=== PATIENT | female | born 1975 | race Caucasian/White ===

== ENCOUNTER → 2016-10-29 | Outpatient (CLI) | payer BC ==
[2016-10-29 12:34] LABS: HEMOGLOBIN 13.5 g/dL (12.2-16.2); LYMPH # 3.1 K/mm3 (0.7-4.5)
[2016-10-29 14:06] LABS: BUN 12 mg/dL (7-18); FREE THYROXIN INDEX 5.8 ug/dl (5.93-13.13)
[2016-10-29 14:13] LABS: GFR (ESTIMATED) 92 ML/MIN (59-)
== END ==
LOC: LAB 12:17
PROVIDERS: Internal Medicine Adolescent Medicine
DX: E03.9 Hypothyroidism, unspecified (principal); E11.9 Type 2 diabetes mellitus without complications; M79.1 Myalgia

== ENCOUNTER 2017-06-12 17:14 | Observation (INO) | payer SELFPAY ==
[~2017-06-12] VITALS: Ht 160 cm; Wt 117.1 kg
[2017-06-12 17:35] VITALS: BP 152/83
[2017-06-12 17:39] VITALS: BP 152/83
[2017-06-12] MEDS ORDERED: XANAX 1MG TABLET1 MG PO (18:09)
[2017-06-12] MEDS ORDERED: ARMOUR THYROID15 M1 PO (18:12)
--- NOTE | 2017-06-12 18:12 | HISTORY AND PHYSICAL REPORT ---
Demographics: Admit date: 06/12/17 Chief complaint: LEFT lower quadrant abdominal pain PRIMARY DIAGNOSIS: KIDNEY STONES,FAILED OUTPATIENT THERAPY Allergies: Coded Allergies: Sulfa (Sulfonamide Antibiotics) (06/12/17) diphenhydramine (From BENADRYL) (06/12/17) History of present illness: History of present illness: 41-year-old with 2-3 week history of dysuria, with increasing pain with urination, has been treated with Macrobid and Cipro as an outpatient. Came to the office today, significant LEFT flank pain, significant pain in the LEFT lower quadrant, significant LEFT CVA tenderness. Urine with hematuria on outpatient dipstick testing. Admitted to hospital for pain control, CT scanning and IV fluids as well as urology consultation if indicated. Past medical history: Family HX Diabetes No CAD Yes Hypertension Yes Hyperlipidemia Yes Cancer Yes TB No Immunization HX DT/Tetanus 03/25 Flu Refused Pneumonia Refuses TB Test in last year No General Angina: No [place]: No Hypertension? No Hyperlipidemia? No CHF? No COPD? No Asthma? No Hernia? No CVA? No Seizures? No Diabetes? No UTI? Yes Stones? Yes GB Disease: No Nephritic Syndrome? No Asplenia? No Hepatitis? No Sickle Cell Disease? No Cataracts? No Glaucoma? No MRSA? No HIV? No TB? No Cancer? No More? No Past Surgical HX Previous Surgery?Y CSECTIONX2 CERVICAL SURGERY WISDOM Current home meds: Reported Medications Alprazolam (Xanax 1MG) 1 MG PO TIDP PRN ANXIETY Social Hx: Smoking HX Are you/the child exposed to second-hand smoke: No Alcohol Alcohol: No Hx of Drug Use Drug Use? No Patien't marital status is Patient's support system is excellent Review of systems: Constitutional malaise, weakness. No: fever. Respiratory No: no symptoms reported. Cardiovascular No no symptoms reported Gastrointestinal/Abdominal nausea, poor appetite, poor fluid intake, No rectal bleeding, No vomiting Genitourinary see HPI. Musculoskeletal No: no symptoms reported. Neurological No: see HPI. Exam: Lab data for last 24 hours: Microbiology 06/12 UNK BLOOD: Anaerobic Blood Culture - ORD 06/12 UNK BLOOD: Aerobic Blood Culture - ORD 06/12 UNK BLOOD: Anaerobic Blood Culture - ORD 06/12 UNK BLOOD: Aerobic Blood Culture - ORD Admission vital signs: 1ST Vital Signs Result Date Time B/P 152/83 06/12 1735 Temp 97.9 06/12 1735 Pulse 96 06/12 173 Resp 18 06/12 1735 Pulse Ox 96 06/12 1739 O2 Delivery ROOM AIR 06/12 1739 Exam General appearance: normal appearance, alert, awake Eyes: normal exam, anicteric ENT: normal exam, mucous membranes moist Neck: normal inspection, non-tender, no carotid bruit, no JVD Cardiovascular: normal exam Respiratory: normal exam, clear to auscultation ABD: soft, LEFT flank and CVA tenderness with no rebound or guarding Genitourinary: normal voiding & quantity Extremities: normal exam Musculoskeletal: normal exam Skin: normal exam, intact, normal color Neuro: normal exam, alert, no deficit Plan: Problem List 1. Hematuria 2. Left flank pain Plan: Possible nephrolithiasis. Admit to hospital for CT scanning, IV fluids, IV pain control, IV antibiotics and urology consultation if indicated. at 1812
[2017-06-12] MEDS ORDERED: BUPROPION HYDR150 M1 PO (18:13)
[2017-06-12] MEDS ORDERED: BUPROPION XL300 MG PO (18:13)
[2017-06-12] MEDS ORDERED: SERTRALINE 100100 MG PO (18:13)
[2017-06-12] MEDS ORDERED: LAMICTAL25 MG PO (18:15)
[2017-06-12] MEDS ORDERED: PREDNISONE 5MG.5 MG PO (18:16)
[2017-06-12] MEDS ORDERED: VITAMIN D31000 IU PO (18:17)
[2017-06-12] MEDS ORDERED: BIOTIN5000 MCG PO (18:17)
[2017-06-12] MEDS ORDERED: CAMRESE1 TAB PO (18:18)
[2017-06-12 18:23] LABS: HEMOGLOBIN 12.7 g/dL (12.2-16.2); LYMPH # 2.2 K/mm3 (0.7-4.5); LYMPH % 16.4 % (10-50.0)
[2017-06-12 19:46] LABS: URINE BILIRUBIN - DIPSTICK NEGATIVE (NEG); URINE BLOOD TRACE-LYSED (NEG)
[2017-06-12 20:00] VITALS: BP 149/80
--- NOTE | 2017-06-12 20:28 | RADIOLOGY REPORT PS360 ---
CT ABD PELVIS W/O CONTRAST HISTORY: QUESTION KIDNEY STONEleft flank pain UTIPatient Age: 41 years: Female Ordering Physician: Jeovanny Quiroga MD TECHNIQUE: Helical CT scanning abdomen and pelvis with no oral nor IV contrast. Sagittal and coronal reconstructions on CT workstation.e COMPARISON :No previous studies FINDINGS Obstructive uropathy on left. Left hydronephrosis mild swelling left kidney reflecting the obstruction with some mild stranding about the left kidney. Cannot exclude associated pyelonephritis. Mild dilatation of entire left ureter down to the left UVJ where we encounter a small 3.5 mm x 3 mm calculus projected over the posterior bladder & on the verge final passage through the UVJ and trigone into the bladder.. If it is not passed already Right kidney and collecting system appear normal right ureter unremarkable. Anteverted uterus. Normal size. No adnexal masses. No fluid abdomen or pelvis. GI tract. No bowel dilatation or obstruction. Moderate distended stomach likely reflects recent meal. Small bowel appears normal. Appendix normal. Moderate stool throughout colon. Gallbladder unremarkable. Spleen unremarkable. Scattered small nodes in the mesentery unimpressive but may reflect some mild reactive nodes. Appendix normal Generous size patient --------- Lung bases Lungs clear heart normal size. Benign Calcified granulomas towards lower lobes bilaterally. Abdomen and pelvis. Lack of oral and IV contrast decreases sensitivity Liver, spleen, pancreas unremarkable. Adrenals unremarkable. No retroperitoneal or pelvic findings of distant seen. Osseous structures are been no significant findings. Modest fat-containing umbilical hernia Previous scar below umbilicus noted IMPRESSION: Obstructive Uropathy on the Left . This due to a small 3.5X 3 mm stone at very distal lips of left UVJ--on the verge of passing into the bladder . Mild hydronephrosis. Mild dilatation entire left ureter results . Mild edema left kidney with mild stranding about left kidney mainly reflecting the obstructive uropathy, although cannot exclude associated pyelonephritis . No additional calculi in either kidney.
--- NOTE | 2017-06-12 20:42 | RADIOLOGY REPORT PS360 ---
CHEST(2 VIEWS-NOT PORTABLE) Ordering physician: Jeovanny Quiroga MD Age: 41 years Female INDICATION: chest symptomsadmit. Flank pain. Pelvic pain. Elevated white count. PROCEDURE: CHEST(2 VIEWS-NOT PORTABLE) FINDINGS: Previous chest film available from September 2014 Lungs well expanded. No focal pneumonia. . No acute findings. No significant change . Prominent fairly extensive calcified nodes right hilum more so than left Small Calcified granulomas midlung wolfe bilaterally. No pneumothorax. No pleural effusion. Heart upper normal size. Normal pulmonary vascularity. . Superior mediastinum unremarkable. Chest wall unremarkable. T-spine intact. IMPRESSION -----. Nothing definite acute.. Stable chest Old granulomatous disease. Prominent calcified nodes right hilum more than left
[2017-06-12 21:00] VITALS: BP 149/80
[2017-06-13] VITALS (14 sets, daily range): BP systolic 113–145; BP diastolic 53–86
[2017-06-13 07:02] LABS: HEMOGLOBIN 12.2 g/dL (12.2-16.2); LYMPH # 3.3 K/mm3 (0.7-4.5); LYMPH % 26.3 % (10-50.0)
--- NOTE | 2017-06-13 07:15 | PHARMACY CLINIC NOTE ---
Patient Demographics Patient Demographics Admission date: 06/12/17 Date: 06/13/17 Time: 0714 Allergies Coded Allergies: Sulfa (Sulfonamide Antibiotics) (06/12/17) diphenhydramine (From BENADRYL) (06/12/17) HEIGHT- FT: 5 IN: 3.00 K.113 VTE General Information Labs: Laboratory Tests 06/13 06/12 0600 1812 Hematology Hgb (12.2 - 16.2 g/dL) 12.2 12.7 Hct (37.0 - 47.0 %) 38.9 40.9 Plt Count (142 - 424 K/mm3) 279 263 Disclaimer The following section includes nursing documentation that has been pulled in for pharmacy review. Patient's VTE score: 1 Patient's VTE Risk: VERY LOW RISK Clinical trial participant? No VTE prophylaxis [id number] [id number] VTE prophylaxis ordered? Yes Type of prophylaxis/treatment: KYLAH at 0714
[2017-06-13] MEDS ORDERED: WELLBUTRIN XL150 MG PO (07:27)
--- NOTE | 2017-06-13 09:02 | ACUTE CARE PROGRESS NOTE (QUA) ---
Progress Notes Subjective Date 06/13/17 Time 0725 Note Patient is resting comfortably in bed. Pain is well controlled on Dilaudid. She denies any discomfort at this time. She is NPO for stone extraction later today. Alert and oriented 3. Rate and rhythm regular. No lower extremity edema. Pulses 2+ bilaterally. Lung sounds clear and equal throughout. Abdomen soft and nontender, normoactive bowel sounds Patient/family reports: feeling better Nursing reports: no complaints Objective Findings Last VS-Temp:97.5 B/P:138/84 Pulse:94 Resp:18 SaO2:97 ROOM AIR Last weight lbs:258 oz:3 K.113 Method:Bed Scales Reviewed: medications, vital signs, lab results Assessment/Plan Problem List 1. Hematuria 2. Left flank pain Patient condition Stable Plan: continue current care This inpt stay is expected to cross 2 MNs from start of care No Comments: Kidney Stone extraction later today. at 0901
--- NOTE | 2017-06-13 15:22 | Anesthesia Record ---
Anesthesia Record Part II Discharge time: 1545 Destination: Second Floor PACU nurse assessment review? Yes Patient is: Stable Anesthesia complications? No at 1528
--- NOTE | 2017-06-13 15:22 | Anesthesia Record ---
Anesthesia Record Part I Total IV fluids: 600 EBL (ml): 0 Urine Output: 0 B/P: 139/72 % SaO2: 94 Pulse: 89 Resps: 16 Temp: 97.3 Patient is: Awake, Stable Stable to PACU at: 1515 at 1521
--- NOTE | 2017-06-13 15:26 | CONSULT NOTE-UROLOGY ---
Urology Initial Visit Date of Visit: 06/13/17 HPI/Chief Complaint: Referring provider: 41/F Presenting problem: Length of time pt has had problem: Person attending patient for this visit: Patient is a 41-year-old white female seen as an inpatient today at the request of Dr. Lowe. She was admitted yesterday with LEFT flank pain and CT scan showed a 3 mm distal LEFT ureteral stone with hydroureteronephrosis. Patient has continued to have some discomfort although improved with IV pain medications. She gives a three-week history of some lower urinary tract symptoms and has been treated with several rounds of antibiotics but the symptoms probably more related to the stone and a UTI. Problem List: 1. Ureteral stone Past Medical History Arthritis? Diabetes? N Hyperlipedemia? N Hypertension? N Heart Problems? ND? N SOA? Asthma? N Lung Disease? COPD? N TB? N Anemia? N Bleeding Disorder? Cancer? N Radiation Tx? Hoarsness? Thyroid Problems? Ulcers? N Kidney Disease? Liver Disease? Glaucoma? Seizures? N CVA? N Immune Disease? HIV? N Trouble w/anesthesia? Abn PSA? Prostate Biopsy? Sexual Dysfunction? Abn Periods? Female Hormone Problems? Uterus/Ovary Problems? ? N : Para: Control? Y Type of BC: Surgical & Social History: Previous Surgery?Y CSECTIONX2 CERVICAL SURGERY WISDOM Tobacco Use: Type: Packs/day: If No, have you ever used and quit how long ago? Alcohol Use: Marital Status: Occupation: Family History: Anemia? Arthritis? Asthma? TB?N Cancer?Y Bleeding Troubles? Hyperlipidemia?Y Diabetes?N COPD? Glaucoma? ND? Heart Problems? HIV? Hypertension?Y Hoarsness? Immune Disease? Kidney Disease? Liver Disease? Lung Disease? Radiation Tx? Seizures? Shortness of Breath? Ulcers? CVA? Thyroid Problems? Trouble w/Anes? Any men in family ever diagnosed with prostate cancer? Relationship of this person: Current Home Medications Reported Medications Thyroid,Pork (Secretary Thyroid) 15 MG PO DAILY BUPROPION HCL (Wellbutrin XL 150MG) 150 MG PO DAILY Alprazolam (Xanax 1MG) 1 MG PO TIDP PRN ANXIETY Bupropion Hcl (Bupropion XL 300MG) 300 MG PO DAILY Sertraline Hydrochloride (Sertraline 100MG) 100 MG PO DAILY Lamotrigine (Lamictal) 50 MG PO DAILY Prednisone (Prednisone 5MG) 9 MG PO DAILY Biotin 5,000 MCG PO DAILY CHOLECALCIFEROL (VITAMIN D3) (Vitamin D) 1,000 IUNITS PO DAILY L-NORGEST/E.ESTRADION-E.ESTRAD (Camrese 0.15-0.03-0.01 MG Tab) 1 TAB PO DAILY Allergies: Coded Allergies: Sulfa (Sulfonamide Antibiotics) (06/12/17) diphenhydramine (From BENADRYL) (06/12/17) Review of Systems: All Other Systems Reviewed/Neg for visit Constitutional: Positive for: fatigue. GI: Positive for: nausea. Musculoskeletal: Positive for: lumbar pain. Vital Signs/Wt/Labs Weight -LB:258 OZ:3 K.113 Method:Bed Scales Height -FT:5 IN:3 CM:160.02 BMI:45.7 Vital Signs Date Time Temp Pulse Resp B/P Pulse O2 O2 Flow FiO2 Ox Delivery Rate 06/13 1521 97.3 89 16 139/72 94 06/13 0933 97.5 94 18 138/84 97 06/13 0929 18 06/13 0730 97.5 94 18 138/84 97 ROOM AIR 06/13 0526 18 06/13 0405 97.9 88 18 144/86 98 ROOM AIR 06/12 2205 16 06/12 2100 98.1 89 16 149/80 98 06/12 2000 98.1 89 16 149/80 98 ROOM AIR 06/12 1804 96 06/12 1804 96 ROOM AIR 06/12 1744 18 06/12 1739 97.9 96 20 152/83 96 ROOM AIR 06/12 1735 97.9 96 18 152/83 Color: Appearance Glucose: Ketone: Bilirubin: Sp.[place]: pH: Protein: Urobilinogen: Blood: Nitrite: Leukocytes: Urine collection method? Residual (ml): Laboratory Tests 06/13/17 0600: Sodium 142, Potassium 3.7, Chloride 107, Carbon Dioxide 29, BUN 14, Creatinine 0.9, Estimated Creat Clear 151, Estimated GFR (MDRD) 69, Glucose 94, Calcium 8.4 L, WBC 12.3 H, RBC 4.15 L, Hgb 12.2, Hct 38.9, MCV 93.7, RDW 13.1, Plt Count 279, MPV 8.1, Gran % 65.2, Gran # 8.0 H, Lymphocytes % 26.3, Monocytes % 5.0, Eosinophils % 3.0, Basophils % 0.4, Lymphocytes # 3.3, Monocytes # 0.6, Eosinophils # 0.4, Basophils # 0.1, PUBS MCHC 31.3 L, MCH 29.4 06/12/171921: Urine Color ORANGE, Urine Appearance CLEAR, Urine pH 5.5, Ur Specific [place] >= 1.030, Urine Protein NEGATIVE, Urine Ketones NEGATIVE, Urine Blood TRACE-LYSED, Urine Nitrate POSITIVE H, Urine Bilirubin NEGATIVE, Urine Urobilinogen 1.0, Ur Leukocyte Esterase NEGATIVE, Urine WBC 3-5, Ur Squamous Epith Cells 5-10, Urine Bacteria OCC, Urine Glucose NEGATIVE 06/12/171811: Sodium 139, Potassium 4.1, Chloride 105, Carbon Dioxide 27, BUN 20 H, Creatinine 1.2 H, Estimated Creat Clear 113, Estimated GFR (MDRD) 49 L, Glucose 112 H, Calcium 9.0, Total Bilirubin 0.3, AST 9 L, ALT 16, Alkaline Phosphatase 121 H, Total Protein 7.0, Albumin 3.2 L, Globulin 3.8 H, Albumin/ Globulin Ratio 0.8 L, WBC 13.5 H, RBC 4.30, Hgb 12.7, Hct 40.9, MCV 95.1, RDW 13.3, Plt Count 263, MPV 8.1, Gran % 77.3, Gran # 10.4 H, Lymphocytes % 16.4, Monocytes % 4.9, Eosinophils % 1.1, Basophils % 0.3, Lymphocytes # 2.2, Monocytes # 0.7, Eosinophils # 0.2, Basophils # 0.0, PUBS MCHC 31.2 L, MCH 29.6 Microbiology Date/Time Procedure - Status Source Growth 06/12 1922 Urine Culture - RECD URINE CC 06/12 1812 Anaerobic Blood Culture - RECD BLOOD 06/12 1812 Aerobic Blood Culture - RECD BLOOD 06/12 1757 Anaerobic Blood Culture - RECD BLOOD 06/12 1757 Aerobic Blood Culture - RECD BLOOD Objective: 100 white female in no apparent distress Pupils equal round reactive to light Abdomen soft tender over the LEFT lower quadrant Respiratory effort Alert and oriented 3 Impression/Plan: 41-year-old white female with LEFT renal colic secondary to a 3 mm distal ureteral stone. We discussed treatment options and she wished to proceed with urologic management. She has been nothing by mouth and we'll set up for ureteroscopy and stone extraction today. at 3729
--- NOTE | 2017-06-13 15:30 | Operative Note-Urology ---
Procedure/Operative Record Procedure DATE OF PROCEDURE: 06/13/17 PREOPERATIVE DIAGNOSIS: LEFT distal ureteral stone POSTOPERATIVE DIAGNOSIS: LEFT distal ureteral stone/LEFT distal ureteral stenosis PROCEDURE PERFORMED: LEFT ureteroscopy stone extraction with LEFT stent placement SURGEON: Kar Abrams ANESTHESIA: Gen. DRAINS: LEFT ureteral stent SPECIMENS: LEFT ureteral stone BRIEF HISTORY: 41-year-old white female with LEFT renal colic secondary to a 3 mm distal ureteral stone. OPERATIVE NOTE: Patient taken to the operating room after informed consent was obtained. Placed on the operating table in the supine position. She had been on preoperative antibiotics on the floor. General anesthesia administered and she was placed into the dorsal lithotomy position. Prepped and draped in the standard surgical fashion. The 21 Vietnamese cystoscope passed into the urethra and the bladder examined in a systematic fashion. The only abnormality was that of some edema at the LEFT ureteral orifice and trigone. A 5 Vietnamese ureteral catheter was passed through the scope and into the LEFT ureteral orifice. The guidewire passed through the ureteral catheter into the LEFT renal pelvis without difficulty. The LEFT ureteral catheter and cystoscope then removed. Our semirigid ureteroscope then passed into the bladder and into the LEFT ureter up through some ureteral edema to the level of the stone. A 2.4 Vietnamese nitinol stone basket was passed through the scope and engaged the stone the stone was grasped and removed with minimal difficulty. The scope was repassed and showed no evidence of any ureteral trauma. There was a lot of ureteral edema however below the stone. For this reason we replaced the cystoscope and passed a 4.8 x 24 Vietnamese stent over the safety wire and a second wire removed with a good curl noted proximally and distally. The string was LEFT on for later removal. She tolerated procedure well and no complications. EBL (ml): 0 IMPRESSION: LEFT distal ureteral stone PLAN: Stone extraction was successful and stent placed. She is to return to the floor and home. She is to return to my office next week for stent removal via the string. at 1518
[2017-06-13] MEDS ORDERED: AUGMENTIN 875-1 EACH PO (20:38)
[2017-06-13] MEDS ORDERED: VICOPROFEN 7.51 TAB PO (20:39)
--- NOTE | 2017-06-16 09:54 | RADIOLOGY REPORT PS360 ---
CYSTOURETHROGRAPHY(STENT/PERC COMPARISON: CT scan abdomen pelvis 06/12/2017 HISTORY: Stent placement TECHNIQUE: O FINDINGS: Fluoroscopic spot films obtained in surgery show the upper portion of the left ureteral stent extending to the left renal pelvis. There is no fluoroscopic spot film of the lower extent of the stent IMPRESSION: Satisfactory placement of a left ureteral stent
--- OUTSIDE RECORDS SUMMARY | 2017-06-20 15:55 | External Medical Summary Rpt | CCD ---
Author Author [employer] Organization [employer] Address Unknown Phone Unavailable Purpose Continuity of Care Document - through 2016
--- OUTSIDE RECORDS SUMMARY | 2017-06-20 15:55 | External Medical Summary Rpt | CCD ---
Author Author , JIAN VILLAR Address Unknown Phone [email or web address] Immunization Name Date Rout CVX Reac Dose Comm Prov Is Faci e tion ent ider Refu lity Give sed n Hep 08-0 43 999 Hist H134 No H134 B, 2-19 oric adul 99 al t Info rmat ion - Sour ce Unsp ecif ied Hep 06-2 43 999 Hist H134 No H134 B, 4-19 oric adul 99 al t Info rmat ion - Sour ce Unsp ecif ied Td 06-2 9 999 Hist H134 No H134 (sadi 4-19 oric lt), 99 al Info adso rmat rbed ion - Sour ce Unsp ecif ied
--- OUTSIDE RECORDS SUMMARY | 2017-06-20 15:55 | External Medical Summary Rpt | CCD ---
Author Author , JIAN Organization JIAN Address Unknown Phone [email or web address] Purpose Continuity of Care Document - 04-30-2017 through 2016 Results Labs Lab Lab Date Result Refere Interp Status Commen Order Detail nces retati t Range on Aldolase SerPl-cCnc (05-21-2017 12:36) Aldolas 5.2 U/L <=8.1 complet e 017 ed SerPl-c 12:36 Cnc ESR Bld Qn (05-21-2017 12:36) ESR Bld 39 0-20 complet Qn 017 mm/hr ed 12:36 LDH SerPl L to P-cCnc (05-21-2017 12:36) LDH 175 U/L 116-250 complet SerPl L 017 ed to 12:36 P-cCnc CRP SerPl-mCnc (05-21-2017 12:36) CRP 2.7 0-0.9 complet SerPl-m 017 mg/dL ed Cnc 12:36 CK SerPl-cCnc (05-21-2017 12:36) CK 51 U/L 37-168 complet SerPl-c 017 ed Cnc 12:36 TANIA SS-B Ab Ser Ql EIA (04-30-2017 09:05) TANIA < 1.0 complet SS-B Ab 017 EU ed Ser Ql 09:05 EIA TANIA SS-A 52kD Ab Ser Ql EIA (04-30-2017 09:05) TANAI 5.4 EU complet SS-A 017 ed 52kD Ab 09:05 Ser Ql EIA Aldolase SerPl-cCnc (04-30-2017 09:05) Aldolas 6.4 U/L <=8.1 complet e 017 ed SerPl-c 09:05 Cnc Neutrophil Ab Ser Ql FC (04-30-2017 09:05) Neutrop NONE NONE complet hil Ab 017 DETECTE DETECTE ed Ser Ql 09:05 D D FC Vit D+metab SerPl-mCnc (04-30-2017 09:05) Vit 48 30-80 complet D+metab 017 ng/mL ed 09:05 SerPl-m Cnc cCP IgG Ser-aCnc (04-30-2017 09:05) cCP IgG < 5.0 <5.0 complet 017 U/mL ed Ser-aCn 09:05 c Rheumatoid fact SerPl-aCnc (04-30-2017 08:59) Rheumat < 10 <14 complet oid 017 IU/mL ed fact 08:59 SerPl-a Cnc CRP SerPl-mCnc (04-30-2017 08:59) CRP 2.4 0-0.9 complet SerPl-m 017 mg/dL ed Cnc 08:59 CK SerPl-cCnc (04-30-2017 08:59) CK 40 U/L 37-168 complet SerPl-c 017 ed Cnc 08:59 ESR Bld Qn (04-30-2017 08:58) ESR Bld 24 0-20 complet Qn 017 mm/hr ed 08:58
--- OUTSIDE RECORDS SUMMARY | 2017-06-20 15:55 | External Medical Summary Rpt | CCD ---
Author Author , JIAN Organization JIAN Address Unknown Phone [email or web address] Purpose Continuity of Care Document - 04-30-2017 [...] 52kD Ab Ser Ql EIA (04-30-2017 09:05) TANIA 5.4 EU complet SS-A 017 ed 52kD [...]
--- OUTSIDE RECORDS SUMMARY | 2017-06-20 15:55 | External Medical Summary Rpt | CCD ---
Author Author , JIAN VILLAR Address Unknown Phone [email or web address] Immunization Name Date Rout CVX Reac Dose [...]
--- OUTSIDE RECORDS SUMMARY | 2017-06-20 15:56 | External Medical Summary Rpt ---
Author Author [employer], [employer] Organization [employer] Address Unknown Phone Unavailable Results CBC W Auto Differential panel in Blood Observa Value Referen Units Interpr Notes Date tion ce etation Range Basophils 0 - 0.2 K/MM3 Normal No Jun 13 informati 2016 6:00 [#/volume on in AM ] in source Blood by data Automated count Basophils 0.1 - 2.0 % Normal No Jun 13 / informati 2016 6:00 leukocyte on in AM s in source Blood by data Automated count Eosinophi 0.0 - 0.4 K/mm3 Normal No Jun 13 ls informati 2016 6:00 [#/volume on in AM ] in source Blood by data Automated count Eosinophi 0.1 - % Normal No Jun 13 ls/100 12.0 informati 2016 6:00 leukocyte on in AM s in source Blood by data Automated count Granulocy 1.8 - 7.8 K/mm3 High No Jun 13 meghna informati 2016 6:00 [#/volume on in AM ] in source Blood by data Automated count Granulocy 37.0 - % Normal No Jun 13 meghna/100 80.0 informati 2016 6:00 leukocyte on in AM s in source Blood by data Automated count Hematocri 37.0 - % Normal No Jun 13 t [Volume 47.0 informati 2016 6:00 on in AM Fraction] source of Blood data Hemoglobi 12.2 - g/dL Normal No Jun 13 n 16.2 informati 2016 6:00 [Mass/vol on in AM ume] in source Blood data Lymphocyt 0.7 - 4.5 K/mm3 Normal No Jun 13 es informati 2016 6:00 [#/volume on in AM ] in source Unspecifi data ed specimen by Automated count Lymphocyt 10 - 50.0 % Normal No Jun 13 es informati 2016 6:00 [#/volume on in AM ] in source Unspecifi data ed specimen by Automated count Erythrocy 27 - 31.2 pg Normal No Jun 13 te mean informati 2016 6:00 corpuscul on in AM ar source hemoglobi data n [Entitic mass] Erythrocy 31.8 - g/dl Low No Jun 5 te mean 35.4 informati 2016 6:00 corpuscul on in AM ar source hemoglobi data n concentra tion [Mass/vol ume] by Automated count Erythrocy 82.2 - fl Normal No Jun 5 te mean 97.8 informati 2016 6:00 corpuscul on in AM ar volume source [Entitic data volume] by Automated count Monocytes 0.1 - 1.0 K/mm3 Normal No Jun 5 informati 2016 6:00 [#/volume on in AM ] in source Blood by data Automated count Monocytes 1.7 - 9.3 % Normal No Jun 5 /100 informati 2016 6:00 leukocyte on in AM s in source Blood by data Automated count Platelet 7.4 - fl Normal No Jun 5 mean 10.4 informati 2016 6:00 volume on in AM [Entitic source volume] data in Blood by Automated count Platelets 142 - 424 K/mm3 Normal No Jun 5 informati 2016 6:00 [#/volume on in AM ] in source Blood data Erythrocy 4.2 - 5.4 M/mm3 Low No Jun 5 meghna informati 2016 6:00 [#/volume on in AM ] in source Amniotic data fluid Erythrocy 11.5 - % Normal No Jun 5 te 17.5 informati 2016 6:00 distribut on in AM ion width source [Entitic data volume] by Automated count Leukocyte 4.8 - K/MM3 High No Jun 5 s 10.8 informati 2016 6:00 [#/volume on in AM ] in source Blood data Basic metabolic panel in Blood Observa Value Referen Units Interpr Notes Date tion ce etation Range Urea 7 - 18 mg/dL No No Jun 5 nitrogen informati informati 2016 6:00 [Mass/vol on in on in AM ume] in source source Serum or data data Plasma Calcium 8.5 - mg/dL Low No Jun 5 [Mass/vol 10.1 informati 2016 6:00 ume] in on in AM Serum or source Plasma data Chloride 98 - 107 mmoL/L Normal No Jun 5 [Moles/vo informati 2016 6:00 lume] in on in AM Serum or source Plasma data Carbon 21.0 - mmoL/L Normal No Jun 13 dioxide, 32.0 informati 2017 6:00 total on in AM [Moles/vo source lume] in data Serum or Plasma Creatinin 0.55 - mg/dL No No Oct 5 e 1.02 informati informati 2017 6:00 [Mass/vol on in on in AM ume] in source source Serum or data data Plasma Creatinin 50 - 200 ML/MIN No No Oct 5 e renal informati informati 2017 6:00 clearance on in on in AM source source predicted data data by Cockcroft -Gault formula Estimated 59- ML/MIN No REFERENCE Oct 5 informati RANGE: 2017 6:00 glomerula on in >60 AM r source ML/MIN/1. filtratio data 73 SQUARE n rate METERSIf (GF this patient is -A merican, then multiply theresult by 1.210. Glucose 74 - 106 mg/dL Normal No Oct 5 [Mass/vol informati 2016 6:00 ume] in on in AM Serum or source Plasma data Potassium 3.5 - 5.1 mmoL/L Normal No Oct 5 informati 2016 6:00 [Moles/vo on in AM lume] in source Serum or data Plasma Sodium 136 - 145 mmoL/L Normal No Oct 5 [Moles/vo informati 2017 6:00 lume] in on in AM Serum or source Plasma data Choriogonadotropin.beta subunit [Units] in 24 hour Urine Observa Value Referen Units Interpr Notes Date tion ce etation Range SPECIMEN COMMENT: NEED BEFORE RADIOLOGY TESTS Choriogon NEG No No No Oct 4 adotropin informati informati informati 2016 7:22 .beta on in on in on in PM subunit source source source [Units] data data data in 24 hour Urine Comprehensive metabolic 2000 panel in Serum or Plasma Observa Value Referen Units Interpr Notes Date tion ce etation Range Albumin/G 1.1 - 1.8 No Low No Oct 4 lobulin informati informati 2016 6:12 [Mass on in on in PM ratio] in source source Serum or data data Plasma Albumin 3.4 - 5.0 gm/dL Low No Oct 4 [Mass/vol informati 2017 6:12 ume] in on in PM Serum or source Plasma data Alkaline 46 - 116 U/L High No Oct 4 phosphata informati 2016 6:12 se on in PM [Enzymati source c data activity/ volume] in Serum or Plasma Bilirubin 0.2 - 1.0 mg/dL Normal No Oct 4 .total informati 2017 6:12 [Mass/vol on in PM ume] in source Serum or data Plasma Urea 7 - 18 mg/dL High No Oct 4 nitrogen informati 2017 6:12 [Mass/vol on in PM ume] in source Serum or data Plasma Calcium 8.5 - mg/dL Normal No Oct 4 [Mass/vol 10.1 informati 2017 6:12 ume] in on in PM Serum or source Plasma data Chloride 98 - 107 mmoL/L Normal No Oct 4 [Moles/vo informati 2017 6:12 lume] in on in PM Serum or source Plasma data Carbon 21.0 - mmoL/L Normal No Oct 4 dioxide, 32.0 informati 2017 6:12 total on in PM [Moles/vo source lume] in data Serum or Plasma Creatinin 0.55 - mg/dL High No Oct 4 e 1.02 informati 2017 6:12 [Mass/vol on in PM ume] in source Serum or data Plasma Creatinin 50 - 200 ML/MIN Normal No Oct 4 e renal informati 2017 6:12 clearance on in PM source predicted data by Cockcroft -Gault formula Estimated 59- ML/MIN Low REFERENCE Oct 4 RANGE: 2017 6:12 glomerula >60 PM r ML/MIN/1. filtratio 73 SQUARE n rate METERSIf (GF this patient is -A merican, then multiply theresult by 1.210. Globulin 1.3 - 3.2 gm/dL High No Oct 4 [Mass/vol informati 2017 6:12 ume] in on in PM Serum source data Glucose 74 - 106 mg/dL High No Oct 4 [Mass/vol informati 2017 6:12 ume] in on in PM Serum or source Plasma data Potassium 3.5 - 5.1 mmoL/L Normal No Oct 4 informati 2017 6:12 [Moles/vo on in PM lume] in source Serum or data Plasma Sodium 136 - 145 mmoL/L Normal No Oct 4 [Moles/vo informati 2017 6:12 lume] in on in PM Serum or source Plasma data Aspartate 15 - 37 U/L Low No Oct 4 informati 2017 6:12 aminotran on in PM sferase source [Enzymati data c activity/ volume] in Serum or Plasma Alanine 12 - 78 U/L Normal No Jun 12 aminotran informati 2016 6:12 sferase on in PM [Enzymati source c data activity/ volume] in Serum or Plasma Protein 6.4 - 8.2 gm/dL Normal No Jun 12 [Mass/vol informati 2016 6:12 ume] in on in PM Serum or source Plasma data CBC W Auto Differential panel in Blood Observa Value Referen Units Interpr Notes Date tion ce etation Range Basophils 0 - 0.2 K/MM3 Normal No Jun 12 informati 2016 6:12 [#/volume on in PM ] in source Blood by data Automated count Basophils 0.1 - 2.0 % Normal No Jun 12 /100 informati 2016 6:12 leukocyte on in PM s in source Blood by data Automated count Eosinophi 0.0 - 0.4 K/mm3 Normal No Jun 12 ls informati 2016 6:12 [#/volume on in PM ] in source Blood by data Automated count Eosinophi 0.1 - % Normal No Jun 12 ls/100 12.0 informati 2016 6:12 leukocyte on in PM s in source Blood by data Automated count Granulocy 1.8 - 7.8 K/mm3 High No Jun 12 meghna informati 2016 6:12 [#/volume on in PM ] in source Blood by data Automated count Granulocy 37.0 - % Normal No Jun 12 meghna/100 80.0 informati 2016 6:12 leukocyte on in PM s in source Blood by data Automated count Hematocri 37.0 - % Normal No Jun 12 t [Volume 47.0 informati 2016 6:12 on in PM Fraction] source of Blood data Hemoglobi 12.2 - g/dL Normal No Jun 12 n 16.2 informati 2016 6:12 [Mass/vol on in PM ume] in source Blood data Lymphocyt 0.7 - 4.5 K/mm3 Normal No Jun 12 es informati 2016 6:12 [#/volume on in PM ] in source Unspecifi data ed specimen by Automated count Lymphocyt 10 - 50.0 % Normal No Jun 12 es informati 2016 6:12 [#/volume on in PM ] in source Unspecifi data ed specimen by Automated count Erythrocy 27 - 31.2 pg Normal No Jun 12 te mean informati 2016 6:12 corpuscul on in PM ar source hemoglobi data n [Entitic mass] Erythrocy 31.8 - g/dl Low No Oct 4 te mean 35.4 informati 2017 6:12 corpuscul on in PM ar source hemoglobi data n concentra tion [Mass/vol ume] by Automated count Erythrocy 82.2 - fl Normal No Oct 4 te mean 97.8 informati 2017 6:12 corpuscul on in PM ar volume source [Entitic data volume] by Automated count Monocytes 0.1 - 1.0 K/mm3 Normal No Oct 4 informati 2017 6:12 [#/volume on in PM ] in source Blood by data Automated count Monocytes 1.7 - 9.3 % Normal No Oct 4 /100 informati 2017 6:12 leukocyte on in PM s in source Blood by data Automated count Platelet 7.4 - fl Normal No Jun 4 mean 10.4 informati 2017 6:12 volume on in PM [Entitic source volume] data in Blood by Automated count Platelets 142 - 424 K/mm3 Normal No Oct 4 informati 2017 6:12 [#/volume on in PM ] in source Blood data Erythrocy 4.2 - 5.4 M/mm3 Normal No Oct 4 meghna informati 2017 6:12 [#/volume on in PM ] in source Amniotic data fluid Erythrocy 11.5 - % Normal No Oct 4 te 17.5 informati 2017 6:12 distribut on in PM ion width source [Entitic data volume] by Automated count Leukocyte 4.8 - K/MM3 High No Oct 4 s 10.8 informati 2017 6:12 [#/volume on in PM ] in source Blood data
--- NOTE | 2017-07-01 14:57 | DISCHARGE SUMMARY STANDARD ---
Demographics Admit date: 06/12/17 Discharge date: 06/13/17 History of present illness History of present illness 41-year-old with 2-3 week history of dysuria, with increasing pain with urination, has been treated with Macrobid and Cipro as an outpatient. Came to the office today, significant LEFT flank pain, significant pain in the LEFT lower quadrant, significant LEFT CVA tenderness. Urine with hematuria on outpatient dipstick testing. Admitted to hospital for pain control, CT scanning and IV fluids as well as urology consultation if indicated. Hospital Course Hospital Course: Patient was admitted, CT scan result showed significant stone at the UVJ junction. The following morning urology was consulted. Recommended stone removal and this was accomplished. Patient felt much better, stent was left in situ and patient was discharged home with antibiotics, pain medication and close followup with urology for Discharge diagnoses Problem List 1. Hematuria 2. Left flank pain 3. Ureteral stone Medications Medications: Discharge meds are as noted. Follow up Follow up in office in: 6 DAYS with: Kar Abrams MD at [id number]
== END 2017-06-13 20:45 | disposition home or self-care (01) ==
LOC: 2ND 17:14
PROVIDERS: Internal Medicine Adolescent Medicine; Urology
PROC: 0T778DZ Dilation of Left Ureter with Intraluminal Device, Via Natural or Artificial Opening Endoscopic (ICD-10-PCS; 2017-06-13)
PROC: 0TC78ZZ Extirpation of Matter from Left Ureter, Via Natural or Artificial Opening Endoscopic (ICD-10-PCS; principal; 2017-06-13 14:00)
DX: N20.2 Calculus of kidney with calculus of ureter (principal); R31.9 Hematuria, unspecified; Q62.10 Congenital occlusion of ureter, unspecified; N39.0 Urinary tract infection, site not specified; Z79.52 Long term (current) use of systemic steroids; Z79.899 Other long term (current) drug therapy
CPT/HCPCS: C2617; G0378; J2405